=== PATIENT | female | born 1990 | race Caucasian/White ===

== ENCOUNTER 2018-02-18 08:38 | Inpatient (IN) ==
[2018-02-18] MEDS ORDERED: Sodium Chlor 0.9% Inj 500 ML IV.SIG PRN (09:10)
[2018-02-18] MEDS ORDERED: Naloxone Inj 0.4 MG/ML Vial IV.PUSH PRN ×2 (09:10→11:42)
[2018-02-18] MEDS ORDERED: fentaNYL Citrate Inj 100 MCG/2 ML Ampul IV.PUSH PRN ×2 (09:10)
[2018-02-18] MEDS ORDERED: Oxytocin 30 Units/500ml Premix 30 UNITS/500 ML BAG IV.SIG ONE (09:10)
[2018-02-18] MEDS ORDERED: Sod Chloride 0.9% Inj 1,000 ML IV.CONT PRN (09:10)
[2018-02-18] MEDS ORDERED: Citric Acid/Sodium Citrate Liq 30 ML UDC PO SCH (09:15)
--- NOTE | 2018-02-18 09:19 | P.HPOB ---
History of Present Illness Primary Care Physician: No Primary Care Physician Chief Complaint: Contractions History of Present Illness: History of Present Illness Primary Care Physician: No Primary Care Physician Chief Complaint: Contractions History of Present Illness: 27-year-old , IUP at 37.6 care uncomplicated per patient report The patient presents complaining of the onset of painful contractions last night. She reports increased in intensity and frequency since it became significantly more painful about 5 AM. There are no attempted treatments or alleviating factors. She reports that she had a small amount of leaking but denies any large gush of fluid. The patient reports movement. She denies any vaginal bleeding. She has no other obstetrical complaints today. 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: , x1, denies STDs/abnormal Paps FH: Denies PMH: Denies PSH: Breast augmentation SH: Denies Meds/allergies: As per EMR Review of Systems All other systems reviewed negative except as stated in HPI Medications and Allergies Allergies Allergy/AdvReac Type Severity Reaction Status Date / Time amoxicillin Allergy Mild SWELLING Unverified 12/08/16 18:56 cefaclor Allergy Mild Rash Unverified 12/08/16 18:56 clavulanic acid Allergy Mild SWELLING Unverified 12/08/16 18:56 Exam Vital signs: Vital Signs 02/18/18 08:58 Temperature 96.9 F L Pulse Rate 78 Respiratory Rate 18 Blood Pressure 133/81 Intake & Output 02/17/18 02/18/18 02/18/18 18:59 06:59 18:59 Weight 77.111 kg Narrative: GENERAL: Well-nourished, well-developed patient. SKIN: Warm and dry. No rashes, masses, lesions HEAD: Normocephalic and atraumatic. EYES: No scleral icterus. No injection or drainage. ENT: No nasal drainage noted. Mucous membranes pink. Airway patent. NECK: Supple, trachea midline. No JVD. CARDIOVASCULAR: Regular rate and rhythm without murmurs, gallops, or rubs. RESPIRATORY: Breath sounds equal bilaterally. No accessory muscle use. BREASTS: Deferred ABDOMEN/GI: Abdomen soft, non-tender, bowel sounds present, no rebound, no guarding Gravid GENITOURINARY: Normal EGBUS. No cervical or vaginal masses noted. Grossly normal rugate. Amnio sure negative, physiologic appearing discharge. SVE 6-7/ complete/BB OW. A limited bedside ultrasound was placed to confirm position as sutures were not able to be palpated with the bulging bag of water position confirmed to be cephalic Uterine Contractions: Q 2-3 minutes FHT's: heart tones in the 130s with moderate long-term variability, good accelerations, no decelerations noted. This is a reactive NST and category 1 heart rate tracing peer EXTREMITIES: No cyanosis or edema. BACK: Nontender without obvious deformity. NEUROLOGICAL/psychiatric: Awake and alert x3. Grossly normal memory/affect. Grossly normal range of motion. Cranial nerves II through XII grossly intact. Motor and sensory grossly within normal limits. Five out of 5 muscle strength in all muscle groups. Normal speech. Assessment and Plan - Plan Assessment/plan: 1. IUP at 37.6 2. Active labor: Patient will be admitted to Dr. Trevino in active labor. Risks of and risks/indications of delivery were discussed in brief. Admission orders and orders for epidural placed. 3. GBS negative 4. well-being: Reassuring testing with reactive NST and category 1 heart rate tracing. Will continue monitoring 5. History of breast augmentation Discharge Plan - Physicians Team ED Provider: Lali Ovalle Primary Care Provider: Primary Care Niloi,No - Discharge Instructions Print Language: Surinamese - Inpatient Certification I certify that the inpatient services were ordered in accordance with Medicare regulations governing the order. This includes certification that hospital inpatient services are reasonable and necessary and in the case of services not specified as inpatient-only under 42 CFR 419.22(n), that they are appropriately provided as inpatient services in accordance to with the 2-midnight benchmark under 43 CFR 412.3(e) Estimated Total Length of Stay (Days): 3 Plans for Post Hospital Care: Home Medications and Allergies Active Medications: Active Medications Citric Acid/Sodium Citrate (Sodium Citrate/Citric Acid Liq) 30 ml PO [employer] Stop: 02/22/18 09:14 Fentanyl Citrate (Fentanyl Inj) 50 mcg IV.PUSH Q1H PRN PRN Reason: Pain Scale 3 - 5 Fentanyl Citrate (Fentanyl Inj) 100 mcg IV.PUSH Q1H PRN PRN Reason: PAIN SCALE 6 TO 10 Lactated Ringer's (Lr 1000 Ml Inj) 1,000 mls @ 3,000 mls/hr IV.SIG UNSCH PRN PRN Reason: compromise or epidural Lactated Ringer's (Lr 1000 Ml Inj) 1,000 mls @ 125 mls/hr IV.CONT .Q8H JB Sodium Chloride (Ns Inj) 500 mls @ 1,000 mls/hr IV.SIG UNSCH PRN PRN Reason: SEE LABEL COMMENTS Sodium Chloride (Ns Inj) 1,000 mls @ 100 mls/hr IV.CONT .Q10H PRN PRN Reason: SEE LABEL COMMENTS Oxytocin (Pitocin 30 Units/Ns 500 Ml Premix) 30 units in 500 mls @ 999 mls/hr IV.SIG BOLUS ONE Stop: 02/18/18 09:40 Lidocaine HCl (Xylocaine 1% Inj) 0.1 ml I-DERMAL PRN PRN PRN Reason: For IV start Stop: 02/21/18 09:09 Lidocaine HCl (Xylocaine 1% Inj) 10 ml INFILTRATN PRN PRN PRN Reason: For episiotomy repair Stop: 02/20/18 09:09 Mineral Oil (Muri-Lube Oil) 10 ml TOPICAL PRN PRN PRN Reason: PRN perineal massage Naloxone HCl (Narcan Inj) 0.1 mg IV.PUSH Q2M PRN PRN Reason: for opiate reversal Allergies Allergy/AdvReac Type Severity Reaction Status Date / Time amoxicillin Allergy Mild SWELLING Unverified 12/08/16 18:56 cefaclor Allergy Mild Rash Unverified 12/08/16 18:56 clavulanic acid Allergy Mild SWELLING Unverified 12/08/16 18:56 Exam Vital signs: Vital Signs 02/18/18 08:58 Temperature 96.9 F L Pulse Rate 78 Respiratory Rate 18 Blood Pressure 133/81 Intake & Output 02/17/18 02/18/18 02/18/18 18:59 06:59 18:59 Weight 77.111 kg Caprini VTE Risk Assessment Caprini VTE Risk Assessment: No/Low Risk (score <= 1) Caprini Risk Assessment Model: Point Value = 1 Point Value = 2 Point Value = 3 Point Value = 5 Age 41-60 Minor surgery BMI > 25 kg/m2 Swollen legs Varicose veins or History of unexplained or recurrent spontaneous Oral contraceptives or hormone replacement Sepsis (< 1 month) Serious lung disease, including pneumonia (< 1 month) Abnormal pulmonary function Acute myocardial infarction Congestive heart failure (< 1 month) History of inflammatory bowel disease Medical patient at bed rest Age 61-74 Arthroscopic surgery Major open surgery (> 45 min) Laparoscopic surgery (> 45 min) Malignancy Confined to bed (> 72 hours) Immobilizing plaster cast Central venous access Age >= 75 History of VTE Family history of VTE Factor V Leiden Prothrombin [id number] Lupus anticoagulant Anticardiolipin antibodies Elevated serum homocysteine Heparin-induced thrombocytopenia Other congenital or acquired thrombophilia Stroke (< 1 month) Elective arthroplasty Hip, pelvis, or leg fracture Acute spinal cord injury (< 1 month) Prophylaxis Regimen: Total Risk Factor Score Risk Level Prophylaxis Regimen 0-1 Low Early ambulation 2 Moderate Order ONE of the following: *Sequential Compression Device (SCD) *Heparin 5000 units SQ BID 3-4 Higher Order ONE of the following medications: *Heparin 5000 units SQ TID *Enoxaparin/Lovenox 40 mg SQ daily (WT < 150 kg, CrCl > 30 mL/min) *Enoxaparin/Lovenox 30 mg SQ daily (WT < 150 kg, CrCl > 10-29 mL/min) *Enoxaparin/Lovenox 30 mg SQ BID (WT < 150 kg, CrCl > 30 mL/min) AND/OR *Sequential Compression Device (SCD) 5 or more Highest Order ONE of the following medications: *Heparin 5000 units SQ TID (Preferred with Epidurals) *Enoxaparin/Lovenox 40 mg SQ daily (WT < 150 kg, CrCl > 30 mL/min) *Enoxaparin/Lovenox 30 mg SQ daily (WT < 150 kg, CrCl > 10-29 mL/min) *Enoxaparin/Lovenox 30 mg SQ BID (WT < 150 kg, CrCl > 30 mL/min) AND *Sequential Compression Device (SCD) Assessment and Plan - Plan Assessment/plan: 1. IUP at 37.6 2. Active labor: Patient will be admitted to Dr. Trevino in active labor. Risks of and risks/indications of delivery were discussed in brief. Admission orders and orders for epidural placed. 3. GBS negative 4. well-being: Reassuring testing with reactive NST and category 1 heart rate tracing. Will continue monitoring 5. History of breast augmentation
[2018-02-18 09:35] LABS: Baso % (Auto) 0.2 % (0.0-2.0); Eos % (Auto) 0.3 % (0.0-4.0); Hematocrit 38.4 % (35.0-46.0); Hemoglobin 12.8 gm/dL (11.6-15.3); Lymph % (Auto) 7.3 % (9.0-44.0); Mean Corpuscular HGB Conc 33.3 % (32.0-36.0); Mean Corpuscular Hemoglobin 29.3 pg (27.0-34.0); Mean Corpuscular Volume 88.2 fL (80.0-100.0); Mean Platelet Volume 7.8 fL (7.0-11.0); Mono # (Auto) 0.8 th/mm3 (0.0-0.9); Mono % (Auto) 5.5 % (0.0-8.0); Neut % (Auto) 86.7 % (16.0-70.0); Platelet Count 220 th/mm3 (150-450); Red Blood Count 4.35 mil/mm3 (4.00-5.30); Red Cell Distribution Width 13.7 % (11.6-17.2); White Blood Count 13.8 th/mm3 (4.0-11.0)
[2018-02-18 09:51] LABS: Bacteria,Urine Few /hpf; Bilirubin,Urine Negative (Negative); Clarity,Urine Hazy (Clear); Color,Urine Yellow (Yellw/Straw); Glucose,Urine (UA) Negative (Negative); Leukocyte Esterase,Urine Moderate (Negative); Nitrite,Urine Negative (Negative); Specific Gravity,Urine 1.015 (1.002-1.035); Squamous Epithelial Cell,Urine 2 /hpf (0-5)
[2018-02-18 09:52] LABS: Amphetamine Urine With Conf Neg (Neg); Benzodiazepine Urine With Conf Neg (Neg)
[2018-02-18] MEDS ORDERED: Lidocaine PF 1.5% Inj 20 ML Ampule ONE (09:59)
[2018-02-18] MEDS ORDERED: fentaNYL 2MCG-Bupiv 0.125% Epi 150 ML EPIDURAL ONE (10:00)
--- NOTE | 2018-02-18 10:55 | P.OBGPN ---
Labor note Dr. Trevino requested that amniotomy be performed on this patient. Category 1 heart rate Cervix is 5 cm, 100% effaced, -2 station. Amniotomy was performed with clear fluid noted Assessment: Term intrauterine in active labor Plan: Continue labor management with Dr. Trevino.
[2018-02-18] MEDS ORDERED: Zolpidem Tartrate 5 MG Tablet PO PRN (11:42)
[2018-02-18] MEDS ORDERED: Acetaminophen 325 MG Tablet PO PRN (11:42)
[2018-02-18] MEDS ORDERED: Benzocaine 20% Top Spray 60 ML Can TOPICAL PRN (11:42)
[2018-02-18] MEDS ORDERED: Oxytocin 30 Units/500ml Premix 30 UNITS/500 ML BAG IV.CONT PRN (11:42)
[2018-02-18] MEDS ORDERED: Bisacodyl 10 MG Supp RECTAL PRN (11:42)
--- NOTE | 2018-02-18 11:44 | P.OBDELI ---
Weeks Gestation: 38 Active Labor Start Date: 02/18/18 Medical Induction of Labor: No Artificial Rupture of Membrane: Yes Anesthesia: Epidural Episiotomy: none Vaginal Delivery: Normal Presentation: Occiput anterior Nuchal Cord: None Delayed Cord Clamping (45 sec): Yes Placenta: Spontaneous delivery, Intact, 3 vessel cord Laceration: Vaginal, 1 deg Repair: Chromic running : Female, Single
[2018-02-18] MEDS ORDERED: fentaNYL Citrate Inj 100 MCG/2 ML Ampul EPIDURAL ONE (12:13)
[2018-02-18] MEDS ORDERED: fentaNYL 2MCG-Bupiv 0.125% Epi 150 ML EPIDURAL PRN (12:13)
[2018-02-18] MEDS ORDERED: Diphtheria/Tetanus/Pertussis Vaccine Inj 0.5 ML Syringe IM ONE (16:00)
[2018-02-18] MEDS ORDERED: Measles/Mumps/Rubella Vaccine Inj 0.5 ML Vial SQ ONE (16:00)
[2018-02-18] MEDS: Senna/Docusate Sodium 8.6/50 MG Tablet PO SCH (20:37)
[2018-02-18] MEDS: Witch Hazel 50%/Glyderin 12.5% 40 Pad Jar RECTAL PRN (20:40)
[2018-02-19] MEDS: Senna/Docusate Sodium 8.6/50 MG Tablet PO SCH (09:27)
--- NOTE | 2018-02-19 09:47 | P.PNOB ---
Subjective Post day: 1 Interval history: DOING WELL ppd #1 Objective Vital Signs/I&O: Vital Signs 02/18/18 10:10 02/18/18 10:12 02/18/18 10:27 Temperature Pulse Rate 101 H 90 88 Respiratory Rate Blood Pressure 134/87 120/70 121/71 02/18/18 10:31 02/18/18 10:45 02/18/18 11:31 Temperature 97.9 F Pulse Rate 87 83 99 H Respiratory Rate 16 Blood Pressure 112/46 L 115/57 L 124/98 H 02/18/18 12:03 02/18/18 12:31 02/18/18 14:50 Temperature 98.2 F Pulse Rate 92 H 89 88 Respiratory Rate 20 Blood Pressure 120/75 113/79 124/78 02/18/18 20:00 02/19/18 06:45 Temperature 97.9 F 98.3 F Pulse Rate 79 78 Respiratory Rate 18 18 Blood Pressure 105/67 108/67 Intake & Output 02/18/18 02/19/18 02/19/18 18:59 06:59 18:59 Weight 77 kg Other: Weight On Admission 77 kg Result Diagrams: 02/18/18 09:15 Objective Remarks: GENERAL: Well-nourished, well-developed patient. ABDOMEN/GI: Abdomen soft, non-tender. Fundus: Firm, non-tender at umbilicus. GENITOURINARY: Light to moderate bleeding. EXTREMITIES: No cyanosis or edema, non-tender, without signs of DVT. Medications and IVs: Active Medications Acetaminophen (Tylenol) 650 mg PO Q4H PRN PRN Reason: PAIN SCALE 1 TO 2 Al Hydroxide/Mg Hydroxide (Milk Of Marcelino Bustos) 30 ml PO Q12H PRN PRN Reason: Mild Constipation Benzocaine (Americaine 20% [place]) 1 spray TOPICAL Q4H PRN PRN Reason: For Perineum Discomfort Last Admin: 02/18/18 20:40 Dose: 1 spray Bisacodyl (Dulcolax Supp) 10 mg RECTAL DAILY PRN PRN Reason: SEVERE CONSITIPATION Ephedrine Sulfate (Ephedrine/Ns Syringe) 10 mg IV.PUSH UNSCH PRN PRN Reason: SEE LABEL COMMENTS Stop: 02/19/18 12:13 Oxytocin (Pitocin 30 Units/Ns 500 Ml Premix) 30 units in 500 mls @ 100 mls/hr IV.CONT UNSCH PRN PRN Reason: Heavy bleeding Fentanyl/Bupivacaine/Sodium Chlor (Fentanyl 2 Mcg-Bupiv 0.125% Epi) 150 mls @ 12 mls/hr EPIDURAL PRN PRN PRN Reason: for Labor Pain Last Admin: 02/18/18 15:30 Dose: 12 mls/hr Ibuprofen (Motrin) 800 mg PO Q8H PRN PRN Reason: For Cramping Last Admin: 02/19/18 06:11 Dose: 800 mg Lactulose (Lactulose Liq) 30 ml PO DAILY PRN PRN Reason: SEVERE CONSITIPATION Miscellaneous Information (Misc Information) 1 each OTHER UNSCH PRN PRN Reason: SEE LABEL COMMENTS Stop: 02/19/18 12:13 Miscellaneous Information (Misc Information) 1 each OTHER UNSCH PRN PRN Reason: SEE LABEL COMMENTS Stop: 02/19/18 12:13 Naloxone HCl (Narcan Inj) 0.1 mg IV.PUSH Q2M PRN PRN Reason: for opiate reversal Ondansetron HCl (Zofran Odt) 4 mg PO Q6H PRN PRN Reason: NAUSEA OR VOMITING Oxycodone/Acetaminophen (Percocet 5/325 Mg) 2 tab PO Q4H PRN PRN Reason: PAIN SCALE 6 TO 10 Oxycodone/Acetaminophen (Percocet 5/325 Mg) 1 tab PO Q4H PRN PRN Reason: PAIN SCALE 3 TO 5 Senna/Docusate Sodium (Erin-Colace) 1 tab PO BID [facility] Last Admin: 02/19/18 09:27 Dose: 1 tab Sennosides (Senokot) 17.2 mg PO Q12H PRN PRN Reason: Moderate Constipation Sodium Chloride (Ns Flush) 2 ml IV.FLUSH BID [facility] Last Admin: 02/18/18 20:37 Dose: 2 ml Sodium Chloride (Ns Flush) 2 ml IV.FLUSH PRN PRN PRN Reason: FLUSH AFTER USING IV ACCESS Witch Karmen/Glycerin (Tucks Pads) 1 applicatio RECTAL QID PRN PRN Reason: HEMORRHOIDS Last Admin: 02/18/18 20:40 Dose: 1 applicatio Zolpidem Tartrate (Ambien) 5 mg PO HS PRN PRN Reason: SLEEP Assessment and Plan - Diagnosis (1) (spontaneous vaginal delivery) Code(s): O80 - Encounter for full-term uncomplicated delivery Status: Acute - Plan Assessment/plan: dc HOME
--- NOTE | 2018-02-19 09:51 | P.DS ---
Date of admission: 02/18/18 09:16 Primary care physician: No Primary Care Physician Brief History from admission: 27-year-old , IUP at 37.6 care uncomplicated per patient report The patient presents complaining of the onset of painful contractions last night. She reports increased in intensity and frequency since it became significantly more painful about 5 AM. There are no attempted treatments or alleviating factors. She reports that she had a small amount of leaking but denies any large gush of fluid. The patient reports movement. She denies any vaginal bleeding. She has no other obstetrical complaints today. 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 STDs/abnormal Paps FH: Denies PMH: Denies PSH: Breast augmentation SH: Denies Meds/allergies: As per EMR DS: Diagnosis - Discharge Diagnosis (1) (spontaneous vaginal delivery) Status: Acute DS: Summary Hospital Course: dc HOME ppD #1 - Time Spent with Patient Total time spent providing and/or coordinating discharge services: Less than 30 minutes Exam Vital signs: Vital Signs 02/18/18 10:10 02/18/18 10:12 02/18/18 10:27 Temperature Pulse Rate 101 H 90 88 Respiratory Rate Blood Pressure 134/87 120/70 121/71 02/18/18 10:31 02/18/18 10:45 02/18/18 11:31 Temperature 97.9 F Pulse Rate 87 83 99 H Respiratory Rate 16 Blood Pressure 112/46 L 115/57 L 124/98 H 02/18/18 12:03 02/18/18 12:31 02/18/18 14:50 Temperature 98.2 F Pulse Rate 92 H 89 88 Respiratory Rate 20 Blood Pressure 120/75 113/79 124/78 02/18/18 20:00 02/19/18 06:45 Temperature 97.9 F 98.3 F Pulse Rate 79 78 Respiratory Rate 18 18 Blood Pressure 105/67 108/67 Intake & Output 02/18/18 02/19/18 02/19/18 18:59 06:59 18:59 Weight 77 kg Other: Weight On Admission 77 kg - Constitutional no acute distress - Routine Neck Exam Present: full ROM - Routine Respiratory Exam Present: CTA bilaterally - Routine Abdominal Exam Present: soft - Routine Skin Exam Present: intact - Routine Neurological Exam Present: oriented X3 Results Procedures completed during hospitalization: Labs on day of discharge: Labs from last 24 hours 02/18/18 02/18/18 02/18/18 20:58 09:15 08:58 Urine Color Urine Clarity Urine pH Ur Specific [place] Urine Protein Urine Glucose (UA) Urine Ketones Urine Occult Blood Urine Nitrate Urine Bilirubin Urine Urobilinogen Ur Leukocyte Esterase Urine RBC Urine WBC Ur Squamous Epith Cells Urine Bacteria Micro UA Comment Ur Microscopic Review Urine Culture Comments Urine Opiates Screen Ur Buprenorphine Pending Ur Heroin Screen Pending Urine Oxycodone Pending Ur Methadone Pending U Hydromorphone Confirm Pending Urine Fentanyl Pending Ur Barbiturates Screen Urine Gabapentin Pending Ur Phencyclidine (PCP) Pending Urine MDPV Pending Ur Amphetamine Screen Ur MDMA & Metabolites Pending U Benzodiazepines Scrn Urine Cocaine Screen U Cannabinoids Screen Ur Synth THC (K2) Pending Blood Type O Negative O Negative Ab Screen Tube Method Negative Blood Bank Comment 02/18/18 02/18/18 08:58 08:58 Urine Color Yellow Urine Clarity Hazy H Urine pH 6.0 Ur Specific [place] 1.015 Urine Protein Negative Urine Glucose (UA) Negative Urine Ketones 20 Urine Occult Blood Moderate H Urine Nitrate Negative Urine Bilirubin Negative Urine Urobilinogen Less than 2 Ur Leukocyte Esterase Moderate H Urine RBC 1 Urine WBC 39 H Ur Squamous Epith Cells 2 Urine Bacteria Few H Micro UA Comment Culture indicated Ur Microscopic Review Not Reportable Urine Culture Comments Culture indicated Urine Opiates Screen Neg Ur Buprenorphine Ur Heroin Screen Urine Oxycodone Ur Methadone U Hydromorphone Confirm Urine Fentanyl Ur Barbiturates Screen Neg Urine Gabapentin Ur Phencyclidine (PCP) Urine MDPV Ur Amphetamine Screen Neg Ur MDMA & Metabolites U Benzodiazepines Scrn Neg Urine Cocaine Screen Neg U Cannabinoids Screen Neg Ur Synth THC (K2) Blood Type Ab Screen Tube Method Blood Bank Comment Discharge Plan - Discharge Disposition Patient Disposition: 01 Discharge Home - Discharge Condition Condition: Good - Discharge Order Discharge Orders: Discharge Order (Routine); Ordered 02/19/18 Ordered By: Dre Mayer - Physicians Team Primary Care Provider: Primary Care Carline Simons Attending Provider: Dre Mayer
[2018-02-19 11:51] VITALS: BP 105/74; PULSE 66; RESP 16; TEMP 98
[2018-02-19] MEDS: Witch Hazel 50%/Glyderin 12.5% 40 Pad Jar RECTAL PRN (14:12)
== END 2018-02-19 14:15 | disposition home or self-care (01) ==
LOC: HOBED 08:38 → H2E 09:00 → H1EA 13:52
PROVIDERS: ADMIT Obstetrics & Gynecology; ATTEND Obstetrics & Gynecology